=== PATIENT | female | born 1975 | race Caucasian/White ===

== ENCOUNTER 2017-02-23 12:19 | Emergency (ER) | payer OTHER, MEDICAID ==
[~2017-02-23] VITALS: Ht 160 cm; Wt 73.0 kg
[2017-02-23 12:24] VITALS: BP 113/75; PULSE 81; RESP 18; TEMP 98.6; O2SAT 99
--- NOTE | 2017-02-23 12:35 | NUR ---
Patient to ER bed 8 to gown for evaluation. Side rails up. Report given to Alba REDDY.
--- NOTE | 2017-02-23 12:36 | NUR ---
Dr. Hammonds at the bedside evaluting Pt.
--- NOTE | 2017-02-23 12:39 | NUR ---
Received Pt in bed 8. Pt c/o right ear pain 8/10 for x3 weeks . Pt stated ear drops are ineffective. No signs of ear drainage noted.
[2017-02-23 12:44] VITALS: BP 121/68; PULSE 89; RESP 14; TEMP 98.5; O2SAT 99
--- NOTE | 2017-02-23 12:47 | NUR ---
Patient given written and verbal discharge instructions and verbalizes understanding. ER MD discussed with patient the results and treatment provided. Given copies of tests performed in ER. Patient in stable condition. ID arm band removed. IV catheter removed intact and dressing applied, no active bleeding. Rx of Tylenol with codeine given. Patient educated on pain management and to follow up with PMD. Pain Scale 8/10. Opportunity for questions provided and answered.
== END 2017-02-23 12:44 | disposition home or self-care (01) ==
LOC: SED 12:19
DX: H92.01 Otalgia, right ear (principal); Z88.1 Allergy status to other antibiotic agents
CPT/HCPCS: 99283